=== PATIENT | female | born 1940 | race Caucasian/White ===

== ENCOUNTER 2023-06-07 11:00 | Outpatient (RCR) | payer MEDICARE, SELFPAY | END 2023-06-07 11:40 | disposition home or self-care (01) | LOC: HO.OT 11:00 | PROVIDERS: PCP Family Medicine; Visit Provider Surgery | DX: S52.501D Unspecified fracture of the lower end of right radius, subsequent encounter for closed fracture with routine healing (principal) | CPT/HCPCS: 97110; 97140; 97165; 97530 ==

== ENCOUNTER 2023-08-16 12:00 | Outpatient (RCR) | payer MEDICARE, SELFPAY | END 2023-10-17 09:38 | disposition home or self-care (01) | LOC: HO.PT 12:00 | PROVIDERS: PCP Family Medicine; Visit Provider Student in an Organized Health Care Education/Training Program | DX: M54.50 Low back pain, unspecified (principal) | CPT/HCPCS: 97110; 97112; 97116; 97140; 97162 ==

== ENCOUNTER 2023-09-25 10:47 | Outpatient (RCR) | payer MEDICARE, SELFPAY | END 2023-10-18 11:14 | disposition home or self-care (01) | LOC: HO.OT 10:47 | PROVIDERS: PCP Family Medicine; Visit Provider Plastic Surgery | DX: S66.313D Strain of extensor muscle, fascia and tendon of left middle finger at wrist and hand level, subsequent encounter (principal) | CPT/HCPCS: 29130; 97166; 97760 ==

== ENCOUNTER 2024-01-23 11:00 | Outpatient (RCR) | payer MEDICARE, SELFPAY | END 2024-01-31 11:38 | disposition home or self-care (01) | LOC: HO.OT 11:00 | PROVIDERS: PCP Family Medicine; Visit Provider Plastic Surgery | DX: S56.41 Strain of extensor muscle, fascia and tendon of other and unspecified finger at forearm level (principal) | CPT/HCPCS: 29125; 97110; 97140; 97166; 97760 ==